=== PATIENT | female | born 1980 | race Caucasian/White ===

== ENCOUNTER 2017-03-11 18:01 | Emergency (ER) | payer BC ==
[~2017-03-11] VITALS: Ht 170.2 cm; Wt 128.2 kg
[2017-03-11 18:03] VITALS: BP 121/85; PULSE 94; TEMP 98.2
[2017-03-11] MEDS ORDERED: XANAX 0.5MG0.5 MG PO (18:06)
[2017-03-11] MEDS ORDERED: EFFEXOR-XR150 MG PO (18:07)
== END 2017-03-11 18:50 | disposition home or self-care (01) ==
LOC: COL.ER 18:01
DX: S86.912A Strain of unspecified muscle(s) and tendon(s) at lower leg level, left leg, initial encounter (principal); F41.9 Anxiety disorder, unspecified; F32.9 Major depressive disorder, single episode, unspecified; X58.XXXA Exposure to other specified factors, initial encounter; Y92.009 Unspecified place in unspecified non-institutional (private) residence as the place of occurrence of the external cause

== ENCOUNTER → 2017-06-13 | Outpatient (CLI) | payer BC ==
[~2017-06-13] MED LIST: EFFEXOR-XR150 MG PO; XANAX 0.5MG0.5 MG PO
== END ==
LOC: COL.RAD 06-09 13:30
DX: M25.511 Pain in right shoulder (principal); M25.512 Pain in left shoulder
CPT/HCPCS: A9585; Q9967

== ENCOUNTER → 2021-09-10 | Outpatient (CLI) | payer BC | LOC: COL.VAS 12:15 | DX: I26.99 Other pulmonary embolism without acute cor pulmonale (principal) ==